=== PATIENT | female | born 1925 | race Caucasian/White ===

== ENCOUNTER 2016-05-19 19:26 | Emergency (ER) | payer MEDICARE, BC ==
[2016-05-19 19:43] VITALS: RESP 18; TEMP 98
[2016-05-19] MEDS ORDERED: HYDROmorphone 1 MG/ML 1 ML SYRINGE IVP STA (20:29)
[2016-05-19] MEDS ORDERED: METOCLOPRAMIDE 5 MG/ML 2 ML VIAL IVP STA (20:45)
[2016-05-19] MEDS ORDERED: diphenhydrAMINE 50 MG/ML 1 ML VIAL IVP STA (20:45)
--- NOTE | 2016-05-19 20:50 | XR ---
EXAMINATION TYPE: XR humerus RT DATE OF EXAM: 05/19/2016 8:26 PM COMPARISON: NONE HISTORY: Shoulder pain TECHNIQUE: 2 views FINDINGS: There is an impacted humeral neck fracture. There is osteopenia. There is no dislocation. E lbow joint appears intact. IMPRESSION: Impacted transverse fracture of the humeral neck.
--- NOTE | 2016-05-19 20:51 | XR ---
EXAMINATION TYPE: XR knee complete RT DATE OF EXAM: 05/19/2016 8:26 PM COMPARISON: NONE HISTORY: Pain TECHNIQUE: 3 views FINDINGS: There is a right knee prosthesis. Components appear in anatomic position. There is no sign of joint effusion. There is vascular calcification. I see no fracture. IMPRESSION: Right knee prosthesis without evidence of a fracture.
--- NOTE | 2016-05-19 20:53 | XR ---
EXAMINATION TYPE: XR forearm RT DATE OF EXAM: 05/19/2016 8:26 PM COMPARISON: NONE HISTORY: Shoulder pain wrist pain TECHNIQUE: 4 views FINDINGS: Radius and ulna appear intact. I see no fracture nor dislocation. There is calcification of the tracheal cartilage. Elbow joint appears intact. IMPRESSION: No acute abnormality of the right forearm.
--- NOTE | 2016-05-19 20:57 | ED ---
Fall HPI <Anish Stubbs - Last Filed: 05/19/16 21:48> - General Source: EMS, RN notes reviewed, old records reviewed Mode of arrival: EMS <Keira Arnoldily - Last Filed: 05/20/16 14:27> - General Chief Complaint: Fall Stated Complaint: fall Time Seen by Provider: 05/19/16 19:39 - History of Present Illness Initial Comments: Patient is a 89 year old female with chief complaint of falling in her driveway while trying to get the mail. She states that she tripped over the concrete. She states that she landed on her right knee, and upper arm. She denies any pain with range of motion of her knee, but states that she had to crawl back to the door. She then called 911, patient denies any loss of consciousness or hitting her head. 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 She is right handed, she denies any peripheral paresthesias. She arrived via EMS in [facility], and was given fentanyl and zofran. (Valentina Arnold) - Related Data Previous Rx's Medication Instructions Recorded Acetaminophen-Codeine 300-30mg 1 tab PO Q4H PRN #20 tablet 05/19/16 [Tylenol #3] Ondansetron Odt [Zofran Odt] 4 mg PO Q8HR PRN #12 tab 05/19/16 Allergies Allergy/AdvReac Type Severity Reaction Status Date / Time morphine Allergy Unknown Verified 05/19/16 19:34 Review of Systems ROS Other: All systems not noted in ROS Statement are negative. <EvelyneAnish - Last Filed: 05/19/16 21:48> ROS Other: All systems not noted in ROS Statement are negative. <CatalinaValentina - Last Filed: 05/20/16 14:27> ROS Statement: Those systems with pertinent positive or pertinent negative responses have been documented in the HPI. Past Medical History Past Medical History: Diabetes Mellitus, GERD/Reflux, Hypertension Additional Past Medical History / Comment(s): neuropathy History of Any Multi-Drug Resistant Organisms: None Reported Past Surgical History: Orthopedic Surgery Additional Past Surgical History / Comment(s): eye Past Psychological History: No Psychological Hx Reported Smoking Status: Never smoker Past Alcohol Use History: None Reported Past Drug Use History: None Reported <Valentina Arnold - Last Filed: 05/20/16 14:27> General Exam <Anish Stubbs - Last Filed: 05/19/16 21:48> Limitations: no limitations General appearance: alert, in no apparent distress Head exam: Present: atraumatic, normocephalic, normal inspection Eye exam: Present: normal appearance, PERRL, EOMI. Absent: scleral icterus, conjunctival injection, periorbital swelling ENT exam: Present: normal exam, mucous membranes moist. Absent: normal oropharynx (chronic poor dentition) Neck exam: Present: normal inspection, full ROM, other (Patient has no tenderness to palpation of cervical spine, no cranial abnormalities C collar removed. ). Absent: tenderness, meningismus, lymphadenopathy Respiratory exam: Present: normal lung sounds bilaterally. Absent: respiratory distress, wheezes, rales, rhonchi, stridor Cardiovascular Exam: Present: regular rate, normal rhythm, normal heart sounds. Absent: systolic murmur, diastolic murmur, rubs, gallop, clicks GI/Abdominal exam: Present: soft, normal bowel sounds. Absent: distended, tenderness, guarding, rebound, rigid Right Upper Arm exam: Present: tenderness (procimal humerus), swelling, ecchymosis. Absent: normal inspection, full ROM Elbow exam: Present: normal inspection, full ROM Forearm Wrist exam: Present: normal inspection, full ROM Hand Wrist exam: Present: normal inspection, full ROM Right Hip exam: Present: normal inspection, full ROM Upper Leg exam: Present: normal inspection, full ROM Knee exam: Present: full ROM, tenderness (over area of brusing over patella), ecchymosis. Absent: normal inspection Lower Leg exam: Present: normal inspection, full ROM Ankle exam: Present: normal inspection, full ROM Foot/Toe exam: Present: normal inspection, full ROM Neurovascular tendon exam: Present: no vascular compromise Gait: observed and limited by pain Back exam: Present: normal inspection Neurological exam: Present: alert, oriented X3, CN II-XII intact Psychiatric exam: Present: normal affect, normal mood Skin exam: Present: warm, dry, intact, normal color. Absent: rash <Valentina Arnold - Last Filed: 05/20/16 14:27> - General Exam Comments Initial Comments: Pleasant alert and oriented 89 year old female. (Valentina Arnold) Medical Decision Making <Anish Stubbs - Last Filed: 05/19/16 21:48> - Radiology Data Radiology results: report reviewed <Valentina Arnold - Last Filed: 05/20/16 14:27> - Medical Decision Making I saw this patient in conjunction with the physician senior sales assistant. I performed independent history and physical exam. Agree with case management. (EvelyneAnish) Patient is a 89 year old female with chief complaint of falling in her driveway while trying to get the mail. She states that she tripped over the concrete. She states that she landed on her right knee, and upper arm. She denies any pain with range of motion of her knee, but states that she had to crawl back to the door. She then called 911, patient denies any loss of consciousness or hitting her head. 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 She is right handed, she denies any peripheral paresthesias. Patient arrived in [employer], patient has no tenderness to palpation and adamently denies neck pain or headache, at this time c collar is removed. Xrays of humerus, forearm, knee obtained. Patient has full range of motion of right leg, patient does have significant bruising over the knee. Humerus xray shows humerus neck fracture. Patient placed in a sling and given Rx for nausea and pain medication. Discussed close follow up with orthopedic physician. Discussed case with Dr. Stubbs, and patient was given face to face evaluation with Dr. Stubbs as well. Patient family agress with treatment plan and will comply. (Valentina Arnold) - Radiology Data Impacted transverse fracture of the humeral neck. Right knee prosthesis without evidence of a fracture. No acute abnormality of the right forearm. (Valentina Arnold) Disposition <Anish Stubbs - Last Filed: 05/19/16 21:48> Time of Disposition: 21:17 <Valentina Arnold - Last Filed: 05/20/16 14:27> Clinical Impression: Humeral surgical neck fracture Disposition: HOME SELF-CARE Condition: Good Instructions: Fall Prevention for Older Adults (ED), Arm Fracture in Adults (ED ), Proximal Humerus Fracture (ED) Additional Instructions: Patient advised to remain in sling, follow-up with orthopedic physician on Sunday. Apply ice over the shoulder. Return to emergency department if any alarming signs or symptoms occur. Prescriptions: Acetaminophen-Codeine 300-30mg [Tylenol #3] 1 tab PO Q4H PRN #20 tablet PRN Reason: Pain Ondansetron Odt [Zofran Odt] 4 mg PO Q8HR PRN #12 tab PRN Reason: Nausea Referrals: Trung Carney MD [Primary Care Provider] - 1-2 days Bassem Suarez PAC [PHYSICIAN COUNTER HELP] - 1-2 days
[2016-05-19 22:30] VITALS: BP 146/89; PULSE 75
== END 2016-05-19 22:20 | disposition home or self-care (01) ==
LOC: EC 19:26
DX: S42.211A Unspecified displaced fracture of surgical neck of right humerus, initial encounter for closed fracture (principal); S80.01XA Contusion of right knee, initial encounter; W01.0XXA Fall on same level from slipping, tripping and stumbling without subsequent striking against object, initial encounter; Y92.008 Other place in unspecified non-institutional (private) residence as the place of occurrence of the external cause; Y93.01 Activity, walking, marching and hiking; Z96.651 Presence of right artificial knee joint; Z88.5 Allergy status to narcotic agent
CPT/HCPCS: 73060; 73090; 73562; 99284; 96374; 96375 ×2; J1200; J2765; J1170